=== PATIENT | female | born 1950 | race Caucasian/White ===

== ENCOUNTER → 2016-09-23 | Outpatient (CLI) | payer MEDICARE, BC | LOC: US 09:30 | DX: R10.11 Right upper quadrant pain (principal) | CPT/HCPCS: 76705 ==

== ENCOUNTER → 2016-10-15 | Outpatient (CLI) | payer MEDICARE, BC | LOC: MRI 10:41 | DX: R10.11 Right upper quadrant pain (principal); K83.8 Other specified diseases of biliary tract; K76.0 Fatty (change of) liver, not elsewhere classified | CPT/HCPCS: 36415; 74181; 80076; 82150; 83690 ==

== ENCOUNTER → 2021-07-30 | Outpatient (CLI) | payer MEDICARE, OTHER ==
[~2021-07-30] VITALS: Ht 162.6 cm; Wt 81.6 kg
[~2021-07-30] MED LIST: BEET ROOT PO; CRANBERRY500 M3 PO; CRESTOR10 MG PO; GARLIC1000 MG PO; LACTULOSE10 GM/151 PO; LOPRESSOR 25 MG25 MG PO; OMEPRAZOLE20 MG PO
== END ==
LOC: OPSV 10:48
DX: M81.0 Age-related osteoporosis without current pathological fracture (principal)
CPT/HCPCS: 96365; J3489

== ENCOUNTER → 2021-09-14 | Outpatient (CLI) | payer MEDICARE, OTHER ==
[~2021-09-14] MED LIST changes: +MAGNESIUM250 M1 PO; +MELOXICAM15 MG PO; +OMEGA-31000 MG PO; +PROBIOTIC1 EAC1 PO
== END ==
LOC: HEART 5 09:00
DX: R07.9 Chest pain, unspecified (principal); I34.0 Nonrheumatic mitral (valve) insufficiency
CPT/HCPCS: 78452; 93306; A9502

== ENCOUNTER 2021-09-15 08:14 | Inpatient (IN) | payer MEDICARE, OTHER ==
[~2021-09-15] VITALS: Ht 162.6 cm; Wt 82.1 kg
[~2021-09-15 08:14] MED LIST changes: -MAGNESIUM250 M1 PO; -MELOXICAM15 MG PO; -OMEGA-31000 MG PO; -PROBIOTIC1 EAC1 PO
[2021-09-15 09:31] LABS: RED BLOOD COUNT 4.48 M/UL (4.00-5.10); WHITE BLOOD COUNT 9.2 K/UL (4.5-11.0)
[2021-09-15 10:18] LABS: BUN/CREATININE RATIO 15 (0-10)
[2021-09-15] MEDS ORDERED: MELOXICAM15 MG PO (16:46)
[2021-09-15] MEDS ORDERED: OMEGA-31000 MG PO (16:48)
[2021-09-15] MEDS ORDERED: PROBIOTIC1 EAC1 PO (16:49)
[2021-09-15] MEDS ORDERED: MAGNESIUM250 M1 PO (16:50)
[2021-09-15 17:53] LABS: HEMOGLOBIN 12.2 gm/dl (12.3-15.3); RED BLOOD COUNT 4.24 M/UL (4.00-5.10); WHITE BLOOD COUNT 8.5 K/UL (4.5-11.0)
[2021-09-16 06:35] LABS: RED BLOOD COUNT 4.13 M/UL (4.00-5.10); WHITE BLOOD COUNT 7.4 K/UL (4.5-11.0)
[2021-09-16 07:04] LABS: BUN/CREATININE RATIO 9 (0-10)
[2021-09-17 06:06] LABS: HEMOGLOBIN 11.8 gm/dl (12.3-15.3); RED BLOOD COUNT 4.09 M/UL (4.00-5.10); WHITE BLOOD COUNT 5.8 K/UL (4.5-11.0)
[2021-09-17 06:19] LABS: BUN/CREATININE RATIO 8 (0-10)
[2021-09-17] MEDS ORDERED: METRONIDAZOLE500 MG PO (18:02)
[2021-09-17] MEDS ORDERED: LEVOFLOXACIN500 MG PO (18:02)
== END 2021-09-17 19:43 | disposition home or self-care (01) | DRG 392 ==
LOC: ER1 08:14 → CDU 16:22 → MED SURG 4 16:22
PROVIDERS: Emergency Medicine; ADMIT Internal Medicine
DX: A05.9 Bacterial foodborne intoxication, unspecified (principal); K62.5 Hemorrhage of anus and rectum; I10 Essential (primary) hypertension; E66.9 Obesity, unspecified; Z20.822 Contact with and (suspected) exposure to COVID-19; K21.9 Gastro-esophageal reflux disease without esophagitis; K76.0 Fatty (change of) liver, not elsewhere classified; E78.5 Hyperlipidemia, unspecified; M19.91 Primary osteoarthritis, unspecified site; Z86.010 Personal history of colon polyps; Z98.890 Other specified postprocedural states; Z85.828 Personal history of other malignant neoplasm of skin; Z79.899 Other long term (current) drug therapy; Z88.8 Allergy status to other drugs, medicaments and biological substances; Z82.49 Family history of ischemic heart disease and other diseases of the circulatory system; Z83.3 Family history of diabetes mellitus; Z82.0 Family history of epilepsy and other diseases of the nervous system; Z68.31 Body mass index [BMI] 31.0-31.9, adult
CPT/HCPCS: 36415; 70450; 78452; 80053; 81001; 82272; 82550; 82553; 83605; 83631; 83690; 84484; 85025; 87040; 87086; 87177; 87209; 87449; 93005; 93306; 96374; 96375; 96376; 99284; A9502; C9113; J2270; J2405; J2543; Q9967; U0002

== ENCOUNTER → 2021-12-08 | Outpatient (CLI) | payer MEDICARE, OTHER ==
[~2021-12-08] MED LIST changes: +LEVOFLOXACIN500 MG PO; +MAGNESIUM250 M1 PO; +MELOXICAM15 MG PO; +METRONIDAZOLE500 MG PO; +OMEGA-31000 MG PO; +PROBIOTIC1 EAC1 PO
== END ==
LOC: KOH-I 16:04
DX: M54.6 Pain in thoracic spine (principal); M54.50 Low back pain, unspecified; M47.814 Spondylosis without myelopathy or radiculopathy, thoracic region; M47.816 Spondylosis without myelopathy or radiculopathy, lumbar region; M16.11 Unilateral primary osteoarthritis, right hip
CPT/HCPCS: 72070; 72100; 73502